=== PATIENT | male | born 1950 | race Caucasian/White ===

== ENCOUNTER 2021-10-14 06:36 | Outpatient (CLI) | payer MEDICARE, SELFPAY ==
[2021-10-14 07:27] LABS: Basophils Absolute Auto 0.1 K/mm3 (0.0-0.1); Basophils Percent Auto 0.6 % (0.2-1.2); Eosinophils Absolute Auto 0.1 K/mm3 (0-0.3); Eosinophils Percent Auto 0.7 % (0-4.4); Hematocrit 42.7 % (42.0-52.0); Hemoglobin 15.1 g/dL (14.0-18.0); Immature Granulocyte Absolute 0.06 K/mm3 (0.00-0.031); Immature Granulocyte Percent A 0.7 % (0-0.5); Lymphocytes Absolute Auto 2.58 K/mm3 (0.9-3.2); Lymphocytes Percent Auto 29.7 % (18.3-44.2); Mean Corpuscular HGB Conc 35.4 g/dl (32-36); Mean Corpuscular Hemoglobin 33.3 pg (26-34); Mean Corpuscular Volume 94.1 fl (80-100); Mean Platelet Volume 8.3 fl (7.4-10.4); Monocytes Percent Auto 11.4 % (2.6-8.5); Neutrophils Percent Auto 56.9 % (45.5-73.1); Platelet Count Result 226 k/mm3 (150-375); Red Blood Count 4.54 M/mm3 (4.6-6.20); Red Cell Distribution Width 12.4 % (11.5-14.5); White Blood Count 8.7 K/mm3 (4.5-10.0)
[2021-10-14 07:34] LABS: Appearance Urine Clear (Clear); Bilirubin Urine Negative (Negative); Blood Urine Negative (Negative); Color Urine Yellow (Yellow); Glucose Urine UA Negative (Negative); Ketones Urine Negative (Negative); Leukocyte Esterase Ur Negative LEU/UL (Negative); Nitrate Urine Negative (Negative); Protein Urine Negative (Negative); Urobilinogen Urine 0.2 mg/dL (<2.0)
[2021-10-14 07:35] LABS: INR 0.9; Prothrombin Time 11.9 Seconds (11.1-14.7)
[2021-10-14 07:36] LABS: Partial Thromboplastin Time 25.7 SECONDS (22.3-36.8)
[2021-10-14 07:43] LABS: Add Urine Microscopic? NO
[2021-10-14 08:04] LABS: Alanine Aminotransferase 26 U/L (6-50); Albumin Level 4.4 g/dL (3.5-5.1); Alkaline Phosphatase 95 U/L (38-126); Anion Gap 8 mmol/L (8-16); Aspartate Amino Transferase 39 U/L (17-59); Bilirubin,Total 0.5 mg/dL (0.2-1.3); Blood Urea Nitrogen 21 mg/dL (9-20); Calcium 9.4 mg/dL (8.4-10.2); Carbon Dioxide 27 mmol/L (22-30); Chloride 94 mmol/L (98-107); Cholesterol 170 mg/dL (0-200); Estimated Glomerular Filt Rate > 60; Glucose 103 mg/dL (65-110); HDL Direct 72 mg/dL; Potassium 4.2 mmol/L (3.4-5.0); Sodium 129 mmol/L (137-145); Triglycerides 76 mg/dL (<150)
[2021-10-14 08:15] LABS: LDL Cholesterol Direct 71 mg/dL
[2021-10-14 08:33] LABS: Prostate Specific Antigen 0.7 ng/mL (< OR = 4.0)
[2021-10-14 09:09] LABS: Folic Acid 10.1 ng/mL (2.76->20)
== END 2021-10-14 06:37 | disposition home or self-care (01) ==
LOC: ANHLAB 06:45
PROVIDERS: PCP Family Medicine Sports Medicine; Visit Provider Family Medicine Sports Medicine
DX: I10 Essential (primary) hypertension (principal); F17.200 Nicotine dependence, unspecified, uncomplicated; J44.9 Chronic obstructive pulmonary disease, unspecified; Z12.5 Encounter for screening for malignant neoplasm of prostate; R51.9 Headache, unspecified; R23.3 Spontaneous ecchymoses
CPT/HCPCS: 36415; 80053; 80061; 81003; 82607; 82746; 84153; 84439; 84443; 85025; 85610; 85730; G0103

== ENCOUNTER 2022-02-26 23:50 | Emergency (ER) | payer MEDICARE, SELFPAY ==
--- NOTE | ~2022-02-26 | CT_ITS ---
CT Abdomen and Pelvis with contrast. History: Abdominal pain. Spiral CT of the abdomen and pelvis was performed after the administration of intravenous contrast. 1 00 cc of Omnipaque 350 was administered intravenously without complication. Dose reduction technique was used on this scan by utilizing automated exposure control and iterative reconstruction technique. The dose-length product (DLP) was 705.36 mGy-cm. COMPARISON: 10/09/2017 Findings: Scans through the lung bases demonstrate mild atelectatic change. The liver, spleen, pancreas, gallbladder, adrenals and kidneys are within normal limits. There is ext ensive atherosclerotic change of the aorta and iliac vessels. There is a probable focal dissection fl ap at the infrarenal abdominal aorta, similar to prior exam. No lymphadenopathy is seen. There is no evidence of bowel obstruction. There is no evidence to suggest acute appendicitis or dive rticulitis. Images through the pelvis were performed. Urinary bladder unremarkable. Prostate gland and seminal ve sicles are unremarkable. No ascites is seen. Impression: Focal dissection of the infrarenal abdominal aorta, probably similar to prior exam. No other significant findings. Reviewed, dictated and finalized at location . PER OPERATOR Impression: Focal dissection of the infrarenal abdominal aorta, probably similar to prior e xam. No other significant findings.
[2022-02-26 23:52] VITALS: BP 187/86; PULSE 69; RESP 15; TEMP 36.2; O2SAT 100
[2022-02-27] VITALS (13 sets, daily range): BP systolic 112–195; BP diastolic 52–89; PULSE 67–82; RESP 14–27; O2SAT 96–100
--- NOTE | 2022-02-27 00:35 | ECG_ITS ---
Measurements Intervals [place] Rate: 69 P: 47 WV: 160 QRS: 68 QRSD: 92 T: 51 QT: 407 QTc: 439 Interpretive Statements SINUS RHYTHM WITH SINUS ARRHYTHMIA BASELINE ARTIFACT- AVR, AVL, AVF NORMAL ECG NO PREVIOUS ECG AVAILABLE FOR COMPARISON Electronically Signed On 02-27-2022 7:45:21 [employer] by Ramesh Bowen D.O.
[2022-02-27] MEDS: ONDANSETRON INJ 4 MG/2 ML VIAL IV PUSH (00:43)
[2022-02-27] MEDS: SODIUM CHLORIDE 0.9% IV 1,000 ML 999 ML IV CONT (00:43)
[2022-02-27 01:08] LABS: Basophils Percent Auto 0.3 % (0.2-1.2); Eosinophils Percent Auto 0.2 % (0-4.4); Hematocrit 45.1 % (42.0-52.0); Hemoglobin 16.1 g/dL (14.0-18.0); Immature Granulocyte Absolute 0.03 K/mm3 (0.00-0.031); Immature Granulocyte Percent A 0.5 % (0-0.5); Lymphocytes Absolute Auto 1.58 K/mm3 (0.9-3.2); Lymphocytes Percent Auto 23.8 % (18.3-44.2); Mean Corpuscular HGB Conc 35.7 g/dl (32-36); Mean Corpuscular Hemoglobin 32.3 pg (26-34); Mean Corpuscular Volume 90.6 fl (80-100); Mean Platelet Volume 9.3 fl (7.4-10.4); Monocytes Absolute Auto 0.8 K/mm3 (0.1-0.6); Monocytes Percent Auto 12.5 % (2.6-8.5); Neutrophils Absolute Auto 4.2 K/mm3 (1.3-6.7); Neutrophils Percent Auto 62.7 % (45.5-73.1); Platelet Count Result 215 k/mm3 (150-375); Red Blood Count 4.98 M/mm3 (4.6-6.20); Red Cell Distribution Width 12.7 % (11.5-14.5); White Blood Count 6.6 K/mm3 (4.5-10.0)
[2022-02-27 01:31] LABS: Lactic Acid Reflex 1.3 mmol/L (0.7-2.0)
[2022-02-27] MEDS: PROCHLORPERAZINE EDISYLATE 10 MG/2 ML VIAL IV PUSH ×2 (01:45→06:37)
--- NOTE | 2022-02-27 01:46 | ED.GENADULT ---
HPI - General Adult General Chief complaint: Nausea/Vomiting/Diarrhea Stated complaint: vomiting Time Seen by Provider: 02/27/22 00:23 History of Present Illness HPI narrative: Patient is 72-year-old gentleman who presents the emergency department with chief complaint of abdominal pain and nausea. The patient reports that he seen his primary care provider earlier this week and was having nausea and abdominal discomfort. The patient reports he was started on antiemetics and reports that he has been still having discomfort and nausea. Patient reports symptoms or not improved by anything and reports there not worsened by anything. Related Data Home Medications Medication Instructions Recorded Confirmed aspirin 81 mg tablet,delayed 81 mg PO DAILY 01/23/19 release (Mikal Low Dose Aspirin) metoprolol succinate 100 mg mg PO 01/23/19 tablet,extended release 24 hr Allergies Allergy/AdvReac Type Severity Reaction Status Date / Time No Known Allergies Allergy Mild Verified 01/30/19 11:45 Review of Systems Review of Systems: A 10 system review of systems was completed on the patient and is negative except for what is stated in the HPI. Nursing and ancillary documentation was reviewed. PMFSH Social History Social History Smoking status: Smoker, status unknown Alcohol intake: current Exam Narrative: GENERAL: Well-appearing, well-nourished, and in no acute distress. HEAD: Normocephalic, atraumatic. EYES: PERRLA and EOMI. ENT: Nares clear, no rhinorrhea or epistaxis. Mucous membranes moist. NECK: Supple. CHEST: Clear to auscultation. No respiratory distress. HEART: Regular rate and rhythm. No murmur heard. Normal peripheral pulses. ABDOMEN: Soft, tenderness to palpation throughout the abdomen, nondistended, normal active bowel sounds. EXTREMITIES: Normal range of motion. No edema. SKIN: Warm, dry, no rash. NEURO: No focal deficits. Alert and oriented x3. PSYCH: Normal mood and affect. Course Vital Signs Vital signs: Vital Signs Temperature 36.2 C L 02/26/22 23:52 Pulse Rate 69 02/26/22 23:52 Respiratory Rate 15 02/26/22 23:52 Blood Pressure 187/86 H 02/26/22 23:52 Pulse Oximetry 100 02/26/22 23:52 Oxygen Delivery Room Air 02/26/22 23:52 Temperature 36.2 C L 02/26/22 23:52 Pulse Rate 73 02/27/22 05:16 Respiratory Rate 17 02/27/22 05:16 Blood Pressure 123/62 02/27/22 05:16 Pulse Oximetry 99 02/27/22 05:16 Oxygen Delivery Room Air 02/26/22 23:52 Medical Decision Making MDM Narrative Medical decision making narrative: Laboratory studies were obtained patient has a normal white blood cell count and normal hemoglobin urinalysis showed no evidence of UTI. EKG interpreted by pa sinus rhythm rate of [address] elevation or ST depression there was artifact from patient movement Patient received IV fluids and into the biotics in the ER. 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 Radiology recommends follow-up as an outpatient with a ultrasound The patient is able to tolerate p.o. Vital Signs Vital Signs: Vital Signs Temperature 36.2 C L 02/26/22 23:52 Pulse Rate 69 02/26/22 23:52 Respiratory Rate 15 02/26/22 23:52 Blood Pressure 187/86 H 02/26/22 23:52 Pulse Oximetry 100 02/26/22 23:52 Oxygen Delivery Room Air 02/26/22 23:52 Temperature 36.2 C L 02/26/22 23:52 Pulse Rate 73 02/27/22 05:16 Respiratory Rate 17 02/27/22 05:16 Blood Pressure 123/62 02/27/22 05:16 Pulse Oximetry 99 02/27/22 05:16 Oxygen Delivery Room Air 02/26/22 23:52 Lab Data 02/27/22 00:49 02/27/22 00:49 Labs: Lab Results 02/27/2202/09
[2022-02-27 02:14] LABS: Appearance Urine Clear (Clear); Bilirubin Urine Negative (Negative); Blood Urine Negative (Negative); Color Urine Yellow (Yellow); Glucose Urine UA Negative (Negative); Ketones Urine 1+ mg/dL (Negative); Leukocyte Esterase Ur Negative LEU/UL (Negative); Nitrate Urine Negative (Negative); Protein Urine Trace mg/dL (Negative); Urobilinogen Urine 0.2 mg/dL (<2.0)
[2022-02-27 02:30] LABS: Mucus Urine Rare /lpf; RBC Urine 0-2 /hpf (0-2); WBC Urine 0-3 /hpf
[2022-02-27 03:07] LABS: Add Urine Microscopic? YES
[2022-02-27 03:21] LABS: Alanine Aminotransferase 34 U/L (6-50); Alkaline Phosphatase 93 U/L (38-126); Anion Gap 11 mmol/L (8-16); Aspartate Amino Transferase 38 U/L (17-59); Bilirubin,Total 0.6 mg/dL (0.2-1.3); Blood Urea Nitrogen 29 mg/dL (9-20); Calcium 8.7 mg/dL (8.4-10.2); Carbon Dioxide 22 mmol/L (22-30); Chloride 97 mmol/L (98-107); Estimated CRCL calculation 61 ml/min; Estimated Glomerular Filt Rate > 60; Glucose 103 mg/dL (65-110); Lipase 218 U/L (23-300); Potassium 4.3 mmol/L (3.4-5.0); Sodium 130 mmol/L (137-145)
[2022-02-27 03:25] LABS: Troponin I < 0.012 ng/mL (0.000-0.034)
== END 2022-02-27 07:32 | disposition home or self-care (01) ==
PROVIDERS: Emergency Provider Emergency Medicine; PCP Family Medicine Sports Medicine
DX: I71.02 Dissection of abdominal aorta (principal); I71.43 Infrarenal abdominal aortic aneurysm, without rupture; R11.2 Nausea with vomiting, unspecified; Z79.82 Long term (current) use of aspirin
CPT/HCPCS: 36415; 74177; 80053; 81001; 83605; 83690; 84484; 85025; 93005; 96361; 96374; 96375; 99284; J0780; J2405; J7030; Q9967

== ENCOUNTER 2024-10-25 12:43 | Emergency (ER) | payer MEDICARE, SELFPAY ==
--- NOTE | 2024-10-25 12:45 | ED.GENADULT ---
HPI - General Adult General Chief complaint: Wound/Laceration Stated complaint: R HAND INJURY Time Seen by Provider: 10/25/24 12:45 Source: patient Mode of arrival: ambulatory Limitations: no limitations History of Present Illness HPI narrative: Pt is a R hand dominant 74 y/o male presenting with c/o R. hand injury. Pt reports he went to stand up from the couch however, his leg was asleep so he fell forward, grazing his arm along the couch (fabric surface). He reports skin tear to the R. hand. He denies striking his head. He denies any bony injury/pain. He denies LOC. He denies feeling dizzy or lightheaded prior to fall. 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 Last tetanus vaccination received < 5 yrs ago. No additional complaints. Related Data Home Medications ?Medication ?Instructions ?Recorded ?Confirmed ?Last Taken ?Type aspirin 81 mg tablet,delayed 81 mg PO DAILY 01/23/19 10/25/24 Unknown History release (Mikal Low Dose Aspirin) metoprolol succinate 100 mg 100 mg PO DAILY 01/23/19 10/25/24 Unknown History tablet,extended release 24 hr Allergies Allergy/AdvReac Type Severity Reaction Status Date / Time No Known Allergies Allergy Mild Verified 10/25/24 12:50 Review of Systems Review of Systems: CONSTITUTIONAL: Denies body aches, fever, chills, or sweats. EYES: Denies visual changes, redness, or discharge. ENT: Denies rhinorrhea, congestion, sore throat, or otalgia. CARDIOVASCULAR: Denies chest pain, palpitations, or edema. RESPIRATORY: Denies cough or dyspnea. GASTROINTESTINAL: Denies abdominal pain, nausea, vomiting, or diarrhea. GENITOURINARY: Denies dysuria or hematuria. SKIN: Reports skin tear to R. hand Denies rash, itching MUSCULOSKELETAL: Denies back pain, joint pain, or myalgia. NEUROLOGIC: Denies headache, numbness, tingling, or weakness. PSYCH: Denies depression or anxiety. All systems reviewed & are unremarkable except as noted in HPI and below (HPI) PMFSH Social History Social History Smoking status: Smoker, status unknown Alcohol intake: current Exam Narrative: GENERAL: Well-appearing, well-nourished, and in no acute distress. HEAD: Normocephalic, atraumatic. EYES: EOMI. No redness or drainage. Conjunctivae normal. NECK: Normal AROM. Supple. CHEST: No respiratory distress. HEART: Regular rate Normal peripheral pulses. ABDOMEN: Soft, nontender, nondistended, normal active bowel sounds. MUSCULOSKELETAL: No bony tenderness. EXTREMITIES: Normal range of motion. No edema. +DNVI +FROM to the RUE SKIN: Warm, dry, no rash. Capillary refill normal. Normal skin turgor. Skin tear to the dorsal aspect of the R. hand, overlying the 1st and 2nd metacarpals. NEURO: No focal deficits. Alert and oriented x3. Gait steady. PSYCH: Normal affect. No signs of depression or anxiety. Course Course Emergency Course: Unable to reapproximate skin as much of the skin has been completely torn away. Reapproximated what I could--nurse then dressed wound Level of Care: Express Care Visit Vital Signs Vital signs: Vital Signs Temperature 96.8 F L 10/25/24 12:53 Pulse Rate 10/25/24 12:53 Respiratory Rate 10/25/24 12:53 Blood Pressure 120/55 L 10/25/24 12:53 Pulse Oximetry 10/25/24 12:53 Temperature 96.8 F L 10/25/24 12:53 Pulse Rate 10/25/24 12:53 Respiratory Rate 10/25/24 12:53 Blood Pressure 120/55 L 10/25/24 12:53 Pulse Oximetry 10/25/24 12:53 Medical Decision Making Vital Signs Vital Signs: Vital Signs Temperature 96.8 F L 10/25/24 12:53 Pulse Rate 10/25/24 12:53 Respiratory Rate 10/25/24 12:53 Blood Pressure 120/55 L 10/25/24 12:53 Pulse Oximetry 10/25/24 12:53 Temperature 96.8 F L 10/25/24 12:53 Pulse Rate 10/25/24 12:53 Respiratory Rate 10/25/24 12:53 Blood Pressure 120/55 L 10/25/24 12:53 Pulse Oximetry 10/25/24 12:53 Discharge Plan Discharge Clinical Impression: Skin tear of right hand without complication Patient Disposition: Home Condition: Stable Instructions: Skin Tear (ED) Patient Language: Nigerien Prescriptions: No Action metoprolol succinate 100 mg tablet extended release 24 hr 100 mg PO DAILY aspirin [Mikal Low Dose Aspirin] 81 mg tablet,delayed release (DR/EC) 81 mg PO DAILY Follow-up/Referrals: Jayde,Malachi Lewis MD [Primary Care Provider, Unknown] - 10/26/24 Time of Disposition: 12:51
[2024-10-25 12:53] VITALS: BP 120/55; PULSE 83; RESP 16; TEMP 36; O2SAT 100
== END 2024-10-25 13:14 | disposition home or self-care (01) ==
PROVIDERS: Emergency Provider Registered Nurse; PCP Family Medicine
DX: S61.411A Laceration without foreign body of right hand, initial encounter (principal); W18.39XA Other fall on same level, initial encounter; Z79.82 Long term (current) use of aspirin
CPT/HCPCS: 99212; G0463

== ENCOUNTER 2024-10-27 10:39 | Emergency (ER) | payer MEDICARE, SELFPAY ==
[2024-10-27 10:49] VITALS: BP 173/100; PULSE 77; RESP 16; TEMP 36.2; O2SAT 99
[2024-10-27] MEDS: LIDO 1%/EPINEPHRINE 1:100,000 20 ML VIAL 5 ML INFILTRATE (11:07)
--- NOTE | 2024-10-27 11:26 | ED_ITS ---
HPI - Skin/Abscess/Foreign Bdy General Chief complaint: Skin/Abscess/Foreign Body Stated complaint: bump on rear end Time Seen by Provider: 10/27/24 10:52 Source: patient and RN notes reviewed Mode of arrival: ambulatory Limitations: no limitations History of Present Illness HPI narrative: Patient presents today complaining painful bump to the lower left buttock that was noted last night. Reports history of abscess many years ago, but none since then. No history of MRSA. No OTC treatment prior to arrival. Patient states he has to fly in an airplane in a few days and to get it taking care of. Related Data Home Medications ?Medication ?Instructions ?Recorded ?Confirmed ?Last Taken ?Type aspirin 81 mg tablet,delayed 81 mg PO DAILY 01/23/19 0 10/25/24 Unknown History release (Mikal Low Dose Aspirin) metoprolol succinate 100 mg 100 mg PO DAILY 01/23/19 0 10/25/24 Unknown History tablet,extended release 24 hr Allergies Allergy/AdvReac Type Severity Reaction Status Date / Time No Known Allergies Allergy Mild Verified 10/27/24 10:52 [facility] Social History Social History Smoking status: Smoker, status unknown Alcohol intake: current Comments At time of signature, I have reviewed and agree with nursing past medical, surgical, social and family history unless otherwise noted. Please see nursing chart for further information. There is no relevant family history pertinent to the presenting complaint Exam Narrative: GENERAL: Well-appearing, well-nourished, and in no acute distress. HEAD: Normocephalic, atraumatic. EYES: EOMI. No redness or drainage. Conjunctivae normal. ENT: Mucous membranes pink and moist. NECK: Normal AROM. CHEST: No respiratory distress. EXTREMITIES: Normal range of motion. No edema. SKIN: Warm, dry, no rash. Capillary refill normal. Normal skin turgor. 2 x 3 cm erythematous fluctuant lesion to the left lower buttock at the skin fold that is mildly tender to palpation. NEURO: No focal deficits. Alert and oriented x3. Gait steady. PSYCH: Normal affect. No signs of depression or anxiety. Course Course Level of Care: Express Care Visit Vital Signs Vital signs: Vital Signs Temperature 97.1 F L 10/27/24 10:49 Pulse Rate 77 10/27/24 10:49 Respiratory Rate 16 10/27/24 10:49 Blood Pressure 173/100 H 10/27/24 10:49 Pulse Oximetry 99 10/27/24 10:49 Temperature 97.1 F L 10/27/24 10:49 Pulse Rate 77 10/27/24 10:49 Respiratory Rate 16 10/27/24 10:49 Blood Pressure 173/100 H 10/27/24 10:49 Pulse Oximetry 99 10/27/24 10:49 Reviewed Procedures Abscess I/D Right buttock: Date of Incision: 10/27/24 Time of Incision: 11:00 Side (if applicable): right Local Anesthetic: lidocaine 1% and with epi Amount of anesthesia used (mL): 3 Technique: incised with #11 blade Amount of fluid expressed (mL): 4 Irrigation: Yes Packing used?: iodoform I&D Results: Pus and Blood Abcess I&D Additional Comments: Dressed with large Band-Aid MDM - Skin/Abscess/Foreign Bdy MDM Narrative Medical decision making narrative: 74-year-old male patient with painful red bump to the left lower buttock that was noted last night. Denies history of staph or MRSA. Reports history of 1 abscess many many years ago. Upon exam, patient has a 3 x 2 cm erythematous fluctuant painful lesion to the left lower buttock. Area was lanced and drained resulting in the copious purulent discharge. The area was packed with iodoform and dressed with large Band-Aid. Prescription for Keflex sent to pharmacy. Anticipatory guidance given. Elevated blood pressure noted. Patient on metoprolol. Differential Diagnosis Differential diagnosis: Likely abscess of skin or subcutaneous tissue and cellulitis Critical Care Time Critical Care Time Critical Care Time: No Discharge Plan Discharge Clinical Impression: Abscess of buttock, left Patient Disposition: Home Condition: Stable Instructions: Antibiotic Form, Abscess (ED), Abscess Incision and Drainage (DC) Additional Instructions: Your abscess has been lanced and drained. Please remove the packing in 48 hours times. Keep covered until scabbed over. Take the antibiotics as prescribed. Take Tylenol for pain if needed. Follow-up with your PCP next week if symptoms are not improving. Your blood pressure was elevated above 120/80 today at Urgent Care. This puts you above the threshold for follow up. Please schedule a followup visit with your personal physician as soon as possible, for further evaluation and treatment. Even blood pressure exceeding 120/80 may indicate pre-hypertension. Patient Language: Hebrew Prescriptions: New cephalexin 500 mg capsule 500 mg PO Q6H 7 Days Qty: 28 0RF No Action metoprolol succinate 100 mg tablet extended release 24 hr 100 mg PO DAILY aspirin [Mikal Low Dose Aspirin] 81 mg tablet,delayed release (DR/EC) 81 mg PO DAILY Follow-up/Referrals: Jayde,Malachi Lewis MD [Primary Care Provider, Unknown] Time of Disposition: 11:26
== END 2024-10-27 11:27 | disposition home or self-care (01) ==
PROVIDERS: Emergency Provider Nurse Practitioner; PCP Family Medicine
DX: L02.31 Cutaneous abscess of buttock (principal); I10 Essential (primary) hypertension; Z79.82 Long term (current) use of aspirin
CPT/HCPCS: 10061; 99213; A9270; G0463; J2004

== ENCOUNTER 2025-01-23 06:46 | Outpatient (CLI) | payer MEDICARE, SELFPAY ==
--- OUTSIDE RECORDS SUMMARY | 2025-01-23 06:51 | XMS_ITS | Clinical Summary ---
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
--- OUTSIDE RECORDS SUMMARY | 2025-01-23 06:51 | XMS_ITS | Patient Health Record ---
Author Organization [facility] Address 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 Name Role Phone Wero Donovan MD Primary Care Provider Unavailab le Reason For Referral No Information Problems Problem Type SNOMED Code ICD Code Onset Dates Problem Status W/U Status Risk Notes Problem History of malignant neoplasm of colon (055452982) History of colon cancer (Z85.038) Active confirmed Plan Of Treatment No Information Insurance Providers Payer Name Payer Address Payer Phone Subscriber Number Group Number Insured Name Patient Relationship to Insured Coverage Start Date Coverage End Date Medicare E2 [address] [address] [place] [address] [id number] Wero Castillo Self - patient is the insured [employer] [address] [place] [address] [id number] Plan F Wero Castillo Self - patient is the insured
--- OUTSIDE RECORDS SUMMARY | 2025-01-23 06:51 | XMS_ITS | Encounter Summary ---
Author Organization [facility] Address 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 Gender Identity Not on file Sexual Orientation Not on file documented as of this encounter Plan of Treatment Not on file documented as of this encounter Procedures Procedure Name Priority Date/Time Associated Diagnosis Comments CT ABDOMEN PELVIS W CONTRAST Routine 06/13/2008 1:07 PM CDT POC CREATININE Routine 06/13/2008 12:48 PM CDT documented in this encounter Results * CT ABDOMEN PELVIS W CONTRAST (06/13/2008 1:07 PM CDT) Anatomical Region Laterality Modality Abdomen Other 06/13/2008 1:07 PM CDT Narrative 06/13/2008 3:47 PM CDT [facility] [address] [place], [place] [address] Admit Date: 06/13/2008 BONG CASTILLO Sex: M Admit Prov: KALIN JONES Date: 1950 Primary Care Prov: CMRN: [id number] [facility] SSN: [id number] IMAGING SERVICES Ordering Prov: N/A Accession Number: [id number] Interpretation CT SCAN OF THE ABDOMEN AND PELVIS WITH IV CONTRAST 06/13/2008 Clinical History: Rectal cancer. Technique: 5 mm contiguous axial images were obtained from the lung bases to the symphysis pubis following oral and IV contrast administration. Findings: The lung bases are clear. The liver, spleen, pancreas, adrenal glands and right kidney are normal. There is a 2 cm cyst projecting from the upper pole of the left kidney. The aorta is atherosclerotic but not aneurysmal. The bowel loops are unremarkable. There is no lymphadenopathy or free fluid. In the pelvis, there is mild sigmoid diverticulosis but no evidence of diverticulitis. The bladder and appendix are within normal limits. There is no lymphadenopathy or free fluid. There are degenerative changes in the spine. IMPRESSION: 1. Sigmoid diverticulosis. 2. Simple left renal cyst. 3. No evidence of metastatic disease. . Dictated by: TALITA FRANKEL 06/13/2008 13:38 Electronically signed by: TALITA FRANKEL 06/13/2008 15:45 Transcribed: 06/13/2008 13:47 AMK Procedure Note Talita Frankel MD - 06/13/2008 [facility] [address] [place], [place] [address] Admit Date: 06/13/2008 BONG CASTILLO Sex: M Admit Prov: KALIN JONES Date:1950 Primary Care Prov: CMRN: [id number] Room: [facility] SSN: [id number] IMAGING SERVICES Ordering Prov: N/A Interpretation CT SCAN OF THE ABDOMEN AND PELVIS WITH IV CONTRAST 06/13/2008 Clinical History: Rectal cancer. Technique: 5 mm contiguous axial images were obtained from the lungbases to the symphysis pubis following oral and IV contrastadministration. Findings: The lung bases are clear. The liver, spleen, pancreas,adrenal glands and right kidney are normal. There is a 2 cm cyst projectingfrom the upper pole of the left kidney. The aorta is atherosclerotic butnot aneurysmal. The bowel loops are unremarkable. There is nolymphadenopathy or free fluid. In the pelvis, there is mild sigmoid diverticulosis but no evidenceof diverticulitis. The bladder and appendix are within normal limits.There is no lymphadenopathy or free fluid. There are degenerative changes inthe spine. IMPRESSION: 1. Sigmoid diverticulosis. 2. Simple left renal cyst. 3. No evidence of metastatic disease. . Dictated by: TALITA FRANKEL 06/13/2008 13:38 Electronically signed by: TALITA FRANKEL 06/13/2008 15:45 Transcribed: 06/13/2008 13:47 AMK [address] MD [address] ORDERABLES Final Resul t * (ABNORMAL) POC CREATININE (06/13/2008 12:48 PM CDT) CREATININE POC 1.3 0.6 - 1.3 mg/dL [facility] Comment: The calculation for the estimated GFR on the i-STAT POC instrument has been changed to correspond to the IDMS-traceable MDRD Study, upon the recommendation of the refrigerated company driver of the i-STAT instrument. The change was effective in our laboratory 01/16/2008. The impact of this change to the estimated GFR is minimal. This calculation is used by the main laboratory methodology also. GFR, >60 >=60 mL/min/1.7 sq meter [facility] GFR 56(L) >=60 mL/min/1.7 sq meter [facility] Capillary blood specimen (specimen) 06/13/2008 12:48 PM CDT 06/13/2008 12:48 PM CDT Kalin Jones MD POINT OF CARE TESTING Edite d INTERFACE SYSTEM Refer to clinic/hospital department [facility] CLIA# [id number] [address] [place], [place] [address] documented in this encounter Visit Diagnoses Diagnosis Carcinoma in situ of rectum documented in this encounter
--- OUTSIDE RECORDS SUMMARY | 2025-01-23 06:51 | XMS_ITS | Clinical Summary ---
Author Organization [facility] Address [address] [place] [address] Care Team Providers Care Monorail Helper Name Role Phone Malachi Donohue MD Primary Care Provider [phone] Allergies No known active allergies Medications metoprolol (LOPRESSOR) 100 mg tablet Take 1 tablet (100 mg total) by mouth 2 (two) times a day Active aspirin 81 mg enteric coated tablet Take 1 tablet (81 mg total) by mouth daily Active acetaminophen (TylenoL) 325 mg tablet 3 tablets (975 mg total) 3 Active celecoxib (CeleBREX) 100 mg capsule 1 capsule (100 mg total) 3 Active cyclobenzaprine (FLEXERIL) 10 mg tablet Take 1 tablet (10 mg total) by mouth every 8 (eight) hours 4 Active methylPREDNISol one (MEDROL DOSEPACK) 4 mg Dosepack FOLLOW PACKAGE DIRECTIONS 4 Active metoprolol XL (TOPROL-XL) 100 mg 24 hr tablet Take 1 tablet (100 mg total) by mouth daily 4 Active naproxen (NAPROSYN) 500 mg tablet 2 Active oxyCODONE (ROXICODONE) 5 mg immediate release tablet Take 1 tablet (5 mg total) by mouth every 6 (six) hours as needed 4 Active senna-docusate (Senokot-S) 8.6-50 mg 1 tablet(s), Oral, bid, 60 tablet(s), Tablet(s), 0, 0, Route to Pharmacy Electronically, [facility], [id number], 182.9, cm, 02/05/23 5:33:00 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 DIRECTOR, Height, 90.6, kg, 02/05/23 5:33:00 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 DIRECTOR, Weight 3 Active traMADoL (Ultram) 50 mg tablet 1 tablet (50 mg total) 3 Active Active Problems Problem Noted Date Diagnosed Date Leukocytosis 05/19/2023 Infrarenal abdominal aortic aneurysm (AAA) witho ut rupture 03/30/2022 Encounters Date Type Department Care Team Description 11/29/2024 8:00 AM CDT Office Visit [facility] at [address] [id number] Isabel Gomez NP Bilateral impacted cerumen (Primary Dx) from Last 3 Months Immunizations Immunization Administration Dates Next Due Tdap 06/14/2022 ZOSTER Recombinant 09/19/2020,07/18/2020 Surgical History Surgery Date Site/Laterality Comments COLECTOMY N/A Medical History Medical History Date Comments Hypertension High blood monocyte count Colon cancer (HCC) Social History Tobacco Use Types Packs/Day Years Used Date Smoking Tobacco: Every Day Cigarettes 1.5 66 Started: 1961 Passive Smoke Exposure: Current Smokeless Tobacco: Never Tobacco Cessation:Ready to Q uit: Not Asked; Counseling Given: Not Answered AUDIT-C Answer Date Recorded Q1: How often do you have a drink containing alcohol? 4 or more times a week 05/10/2024 Q2: How many drinks containi ng alcohol do you have on a typical day when you are drinking? 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 Gender Identity Not on file Sexual Orientation Not on file Last Filed Vital Signs Vital Sign Reading Time Taken Comments Blood Pressure 131/70 11/29/2024 8:00 AM CDT Pulse 71 11/29/2024 8:00 AM CDT Temperature 36.2 C (97.2 F) 11/29/2024 8:00 AM CDT Respiratory Rate 16 11/29/2024 8:00 AM CDT Oxygen Saturation 99% 11/29/2024 8:00 AM CDT Inhaled Oxygen Concentration - - Weight 92.1 kg (203 lb) 11/29/2024 8:00 AM CDT Height 180.3 cm (5' 11) 07/14/2024 8:13 AM CDT Body Mass Index 28.31 07/14/2024 8:13 AM CDT Plan of Treatment Health Maintenance Due Date Last Done Comments Depression Screening 1950 Fall Risk Assessment 1950 Hepatitis C Screening 1950 Hepatitis B Screening 02/04/1966 Pneumococcal vaccine 65+ (1 of 2 - PCV) 02/04/1967 Lung Cancer Screening 02/04/1998 Well Visit 65+ 02/04/2013 Covid-19 Vaccine (2024-2 6 season) 2024 03/11/2021, 04/27/2020, 04/06/2020 Influenza Vaccine (#1) 2024 DTaP/Tdap/Td Vaccine (2 - Td or Tdap) 06/14/2032 06/14/2022 Zoster Vaccine Completed 09/19/2020, 07/18/2020 Abdominal Aortic Aneurysm (A AA) Screen Completed 05/10/2024, 05/10/2024, 05/10/2024, Additional history exists Procedures Procedure Name Priority Date/Time Associated Diagnosis Comments PA REMOVAL IMPACTED CERUMEN INSTRUMENTATION UNILAT Routine 11/29/2024 8:00 AM CDT Bilateral impacted cerumen US ABDOMINAL AORTA Schedule Routine, Read Routine (OP Routine) 04/10/2022 8:52 AM 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 DIRECTOR Infrarenal abdominal aortic aneurysm (AAA) without rupture from Last 3 Months or Most Recently Relevant to Health Maintenance Results * PA REMOVAL IMPACTED CERUMEN INSTRUMENTATION UNILAT (11/29/2024 8:00 AM CDT) Narrative Isabel Gomez NP - 11/29/2024 8:00 AM CDT Isabel Gomez NP 11/29/2024 8:17 AM Ear Cerumen Removal Performed by: Isabel Gomez NP Authorized by: Isabel Gomez NP Consent Given by: Patient Timeout: prior to procedure the correct patient, procedure, and site was verified Verbal consent obtained: Yes Risks, alternatives, and patient questions discussed: Yes Preparation: Patient was prepped using a clean technique Location: Bilateral L ear cerumen impacted?: Yes L ear method of removal: Instrumentation and irrigation L ear instrumentation: Curette L ear magnification: Otoscope R ear cerumen impacted?: Yes R ear method of removal: Instrumentation and irrigation R ear instrumentation: Curette R ear magnification: Otoscope Inspection: TM intact Hearing quality: Improved Patient tolerance: Patient tolerated the procedure well with no immediate complications TM and canal normal bilaterally after cerumen removed. us Isabel Gomez DESIGN INTERN IN CLINIC/BEDSIDE ORDERABLES Fi nal Result * US Abdominal Aorta (04/10/2022 8:52 AM 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 DIRECTOR) Anatomical Region Laterality Modality Abdomen N/A Ultrasound 04/10/2022 9:03 AM 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 DIRECTOR Impressions 04/10/2022 9:03 AM 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 DIRECTOR There is a 3.2 cm distal abdominal aortic aneurysm. Electronically signed by: Meet Prescott M.D. Narrative 04/10/2022 9:03 AM 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 DIRECTOR EXAM: US ABDOMINAL AORTA CLINICAL HISTORY: Follow-up reported distal abdominal aortic aneurysm. COMPARISON: None available. FINDINGS: There is abdominal aortic atherosclerosis. The proximal abdominal aorta measures 2.4 x 2.5 cm. The mid abdominal aorta measures 2.6 x 2.7 cm. The distal abdominal aorta measures 3.2 x 3.2 cm. Both common iliac arteries are of normal caliber. No periaortic mass or fluid collection is identified. Procedure Note Meet Prescott MD - 04/10/2022 EXAM: US ABDOMINAL AORTA CLINICAL HISTORY: Follow-up reported distal abdominal aortic aneurysm. COMPARISON: None available. FINDINGS: There is abdominal aortic atherosclerosis. The proximal abdominal aorta measures 2.4 x 2.5 cm. The mid abdominal aorta measures 2.6 x 2.7 cm. The distal abdominal aorta measures 3.2 x 3.2 cm. Both common iliac arteries are of normal caliber. No periaortic mass or fluid collection is identified. IMPRESSION: There is a 3.2 cm distal abdominal aortic aneurysm. Electronically signed by: Meet Prescott M.D. Phoenix Mejia MD [facility] PROCEDURES Final Result from Last 3 Months or Most Recently Relevant to Health Maintenance Insurance MEDICARE [facility] MEDICARE [facility] MEDICARE [employer] Care Teams Monorail Helper Relationship Specialty Start Date End Date Malachi Donohue MD [address] [place] [id number] PCP - General Family Medicine 04/27/23
--- OUTSIDE RECORDS SUMMARY | 2025-01-23 06:51 | XMS_ITS | Encounter Summary ---
Author Organization [email or web address] Address [address] [place] [address] Care Team Providers Care Millwright Supervisor Name Role Phone Unavailable Primary Care Provider Unavailabl e Encounter Details Date Type Department Care Team (Late st Contact Info) Description 06/13/2008 Outpatient Historical [facility] Kalin Jones MD NO ADDRESS ON FILE Social History Tobacco Use Types Packs/Day Years Used Date Smoking Tobacco: Never Assessed Sex and Gender Information Value Date Recorded Sex Assigned at Not on file Legal Sex Male 5:44 AM [employer] Gender Identity Not on file Sexual Orientation Not on file documented as of this encounter Plan of Treatment Not on file documented as of this encounter Procedures Procedure Name Priority Date/Time Associated Diagnosis Comments CBC WITH DIFFERENTIAL Routine 06/24/2008 5:38 AM CDT CBC WITH DIFFERENTIAL Routine 06/22/2008 5:22 AM CDT BASIC METABOLIC PANEL Timed Study 06/22/2008 5:22 AM CDT PATHOLOGY Routine 06/21/2008 5:00 PM CDT CBC WITH DIFFERENTIAL Routine 06/13/2008 2:25 PM CDT CEA Routine 06/13/2008 2:25 PM CDT COMPREHENSIVE METABOLIC PANEL Routine 06/13/2008 2:25 PM CDT TYPE AND CROSSMATCH Routine 06/13/2008 2 :19 PM CDT documented in this encounter Results * (ABNORMAL) CBC WITH DIFFERENTIAL (06/24/2008 5:38 AM CDT) HEMOGLOBIN 12.8(L) 13.6 - 16.5 g/dL [facility] RDW 12.9 11.5 - 14.5 % [facility] WBC 8.4 4.0 - 9.8 K/uL [facility] MCH 31.4 27.2 - 32.6 pg [facility] MPV 9.7 9.3 - 12.4 fL [facility] HEMATOCRIT 38.7(L) 40.0 - 48.0 % [facility] RDW-STDEV 44.9 37.1 - 48.7 fL [facility] RBC 4.07(L) 4.50 - 5.40 M/uL [facility] MCHC 33.1 31.5 - 35.5 % [facility] MCV 95.1 82.0 - 99.0 fL [facility] PLATELETS 197 140 - 350 K/uL [facility] EOSINOPHILS 1 0 - 7 % [facility] EOSINOPHIL ABSOLUTE 0.12 0.00 - 0.70 K/uL [facility] LYMPHOCYTES 17 16 - 45 % [facility] LYMPHOCYTE ABSOLUTE 1.47 0.70 - 4.50 K/uL [facility] BASOPHILS 1 0 - 2 % [facility] BASOPHILS ABSOLUTE 0.04 0.00 - 0.20 K/uL [facility] MONOCYTE ABSOLUTE 0.86 0.10 - 1.30 K/uL [facility] NEUTROPHILS 71(H) 45 - 70 % [facility] NEUTROPHIL ABSOLUTE 5.95 1.90 - 7.00 K/uL [facility] MONOCYTES 10 3 - 13 % [facility] Blood specimen (specimen) 06/24/2008 5:38 AM CDT 06/24/2008 5:50 AM CDT us Kalin Jones MD HEMATOLOGY ORDERABLES Edite d INTERFACE SYSTEM Refer to clinic/hospital department [facility] CLIA# [id number] [address] [place] [address] * (ABNORMAL) CBC WITH DIFFERENTIAL (06/22/2008 5:22 AM CDT) PLATELETS 213 140 - 350 K/uL [facility] HEMOGLOBIN 12.7(L) 13.6 - 16.5 g/dL [facility] RDW 13.0 11.5 - 14.5 % [facility] WBC 10.6(H) 4.0 - 9.8 K/uL [facility] MCH 31.4 27.2 - 32.6 pg [facility] MPV 9.8 9.3 - 12.4 fL [facility] HEMATOCRIT 37.6(L) 40.0 - 48.0 % [facility] RDW-STDEV 43.8 37.1 - 48.7 fL [facility] RBC 4.04(L) 4.50 - 5.40 M/uL [facility] MCHC 33.8 31.5 - 35.5 % [facility] MCV 93.1 82.0 - 99.0 fL [facility] EOSINOPHILS 0 0 - 7 % [facility] EOSINOPHIL ABSOLUTE 0.00 0.00 - 0.70 K/uL [facility] LYMPHOCYTES 10(L) 16 - 45 % [facility] LYMPHOCYTE ABSOLUTE 1.01 0.70 - 4.50 K/uL [facility] BASOPHILS 0 0 - 2 % [facility] BASOPHILS ABSOLUTE 0.00 0.00 - 0.20 K/uL [facility] MONOCYTES 8 3 - 13 % [facility] MONOCYTE ABSOLUTE 0.83 0.10 - 1.30 K/uL [facility] NEUTROPHILS 83(H) 45 - 70 % [facility] NEUTROPHIL ABSOLUTE 8.71(H) 1.90 - 7.00 K/uL [facility] Blood specimen (specimen) 06/22/2008 5:22 AM CDT 06/22/2008 6:20 AM CDT us Kalin Jones MD HEMATOLOGY ORDERABLES Edite d INTERFACE SYSTEM Refer to clinic/hospital department [facility] CLIA# [id number] [address] [place], [place] [address] * (ABNORMAL) BASIC METABOLIC PANEL (06/22/2008 5:22 AM CDT) CHLORIDE 101 96 - 108 mmol/L [facility] SODIUM 132(L) 135 - 145 mmol/L [facility] GLUCOSE 207(H) 65 - 99 mg/dL [facility] CALCIUM 7.8(L) 8.6 - 10.2 mg/dL [facility] CO2 23 22 - 30 mmol/L [facility] GFR, >60 >=60 mL/min/1. 7 sq meter [facility] POTASSIUM 4.0 3.5 - 4.9 mmol/L [facility] CREATININE 1.09 0.67 - 1.17 mg/dL [facility] BUN 16 6 - 20 mg/dL [facility] GFR >60 >=60 mL/min/1. 7 sq meter [facility] Comment: Modification of Diet in Renal Disease (MDRD) study formula. Estimated GFR rate interpretative information for both Americans and non- Americans is available on the [facility] Intranet at: [email or web address] Select: Lab Policies and Procedures Select: Reference Ranges - GFR Blood specimen (specimen) 06/22/2008 5:22 AM CDT 06/22/2008 6:19 AM CDT us Kalin Jones MD CHEMISTRY ORDERABLES Edited INTERFACE SYSTEM Refer to clinic/hospital department [facility] CLIA# [id number] [address] [place] [address] * PATHOLOGY (06/21/2008 5:00 PM CDT) FINAL REPORT [address] [address] Patient: BONG CASTILLO : 1950 Procedure Date: 06/21/2008 Accession Date: 06/22/2008 Case No: [id number] Ordering Dr: KALIN JONES Case types AW, BW, FW, NW and SH are performed by [place], [place] SURGICAL PATHOLOGY & NON-GYNECOLOGIC CYTOPATHOLOGY REPORT DIAGNOSIS RECTUM, LAPAROSCOPIC ANTERIOR COLON RESECTION: - POLYPECTOMY SITE CHANGES WITH NO RESIDUAL CARCINOMA. - HYPERPLASTIC POLYPS, MULTIPLE. LARGE INTESTINE, SIGMOID, SEPARATE SEGMENT, EXCISION: - NO PATHOLOGIC DIAGNOSIS. LYMPH NODES, MESORECTAL AND PERICOLIC EXCISION: - NEGATIVE FOR METASTASIS (29 LYMPH NODES). Specimen Description: (1) Sigmoid colon and rectum, suture cortez polypectomy site; (2) mesorectum. Operative Procedure: Laparoscopic anterior colon resection. Patient Information/Histor y/Diagnosis: Malignant rectal polyp. Gross: Received are two containers labeled Jonathan Mickey.. Received in the first container, additionally labeled sigmoid colon and rectum, suture cortez polypectomy site is a 18.0-cm long x 0.6-cm in circumference distal portion of colon, contiguous with a 5.0-cm long x 7.5-cm in circumference portion of rectum. The segment was received open. There is 23.0 x 6.0 x 5.0-cm of attached adipose tissue. The peritoneal reflection is 16.0 cm from the distal margin. The adipose tissue surrounding the rectum is disrupted and the underlying muscle is exposed. A suture is present on the rectal mucosa, marking a polypectomy site. There is a 1.8 x 1.0 x 0.1-cm slightly raised, slightly indurated area of pink-santana mucosa adjacent to the suture, which may be a sessile polyp. The mucosa surrounding the possible polyp is discolored fox, and the submucosa appears to have previously been marked with tattoo ink. The possible polyp is 3.8 cm from the distal margin and 17.4 cm from the proximal margin. Upon sectioning, the possible polyp does not appear to involve the muscularis propria and is 1.2 cm from the blue-inked radial margin. The remainder of the mucosa is pink-santana and demonstrates a normal folding pattern. Four additional pink-santana sessile polyps are identified, ranging from 0.2 cm to 0.3 cm. These polyps come to within 7.0 cm from the proximal margin, and 9.4 cm from the distal margin. The average wall thickness is 0.2 cm. The attached adipose tissue is fixed in Carnoy's and dissected for lymph node candidates. Auto Crane Driver sections are submitted as follows: A1-proximal bowel margin, tangential; J6-V5-rfavgb bowel margin, tangential; O8-W2-sljxiskm polyp in area of suture, entirely submitted; A7-additional sessile polyp; A8-tattooed mucosa adjacent to suture; U9-J31-tkafb node candidate. Also received in a container is a 10.5-cm long x 5.0-cm in circumference segment of bowel. The segment is received closed and has 10.0 x 5.5 x 4.0 cm of attached adipose tissue. The serosa is pink-santana and glistening. The mucosa is pink-santana and demonstrates a normal folding pattern. No lesions are identified. The average wall thickness is 0.2 cm. The attached adipose tissue is fixed in Carnoy's and dissected for lymph node candidates. [employer] sections are submitted as follows: [id number] margins, tangential; K85-teplgk and bowel wall; Q42-V60-uugtp node candidates. Received in the second container labeled mesorectum is a 6.5 x 3.5 x 1.0- cm portion of adipose tissue. It is dissected for lymph node candidates. Four lymph node candidates are identified, each 0.2 cm. All are submitted in block A19 [facility] 06.22.2008 05:10 pm Microscopic: The slides are labeled [id number], Bong Castillo. Sections of the rectosigmoid colectomy show no evidence of residual adenocarcinoma. The sections of polypectomy site show fibrosis within the submucosa and superficial portion of the muscularis propria, focally associated with tattoo ink. The overlying mucosa has foci of slight crypt architectural distortion, but there is no evidence of residual adenoma or carcinoma. The additional small polyps noted grossly represent minute hyperplastic polyps as well as small lymphoid aggregates. The surgical margins are negative for malignancy. All 22 lymph nodes identified in pericolorectal fat are negative for metastasis. Many contain tattoo ink. Sections of the separate segment of bowel showed no significant pathologic alterations. Six lymph nodes isolated from pericolic fat are negative for metastasis. The separately submitted mesorectum specimen contains a single small lymph node which is negative for metastasis. The following staging parameters are based on both the prior biopsy and the current resection. Summary of Significant Characteristics for Colon/Rectum/Trans anal Excision: Specimen: Sigmoid colon and rectum. Procedure: Laparoscopic anterior colon resection. Tumor Site: Rectum. Tumor Size: Cannot be determined. Macroscopic Tumor Perforation: Absent. Histologic Type: Adenocarcinoma. Histologic Grade: Low-grade. Microscopic Tumor Extension: Invades submucosa. Status of Proximal, Distal, Circumferential (Radial) or Mesenteric, and Lateral Margin(s): All uninvolved, polypectomy site is 3.8 cm from the distal margin and 1.2 cm from the radial margin. Treatment Effect: No prior treatment. Lymphatic/Small Vessel Invasion: Present. Venous/Large Vessel Invasion: Absent. Pathologic Staging (pTNM): pT1 N0 MX. Lymph Nodes: Number Examined 29; Number Involved 0. FLAKO/VIOLET 06.25.2008 12:12 pm Staging Form: Yes ELECTRONIC SIGNATURE FOR ALFREDO FONG MD- 06/25/08 03:55 pm INTERFACE SYSTEM 06/21/2008 5:00 PM CDT us Kalin Jones MD PATHOLOGY/CYTOLOGY ORDERABL ES Final Result INTERFACE SYSTEM Refer to clinic/hospital department * (ABNORMAL) COMPREHENSIVE METABOLIC PANEL (06/13/2008 2:25 PM CDT) CHLORIDE 96 96 - 108 mmol/L [facility] TOTAL PROTEIN 7.9 6.3 - 8.6 g/dL [facility] SODIUM 137 135 - 145 mmol/L [facility] GLUCOSE 120(H) 65 - 99 mg/dL [facility] AST 26 12 - 38 U/L [facility] CO2 25 22 - 30 mmol/L [facility] BILIRUBIN TOTAL 0.5 0.2 - 1.0 mg/dL [facility] CALCIUM 9.7 8.6 - 10.2 mg/dL [facility] POTASSIUM 3.4(L) 3.5 - 4.9 mmol/L [facility] ALBUMIN 5.0(H) 3.4 - 4.8 g/dL [facility] CREATININE 1.04 0.67 - 1.17 mg/dL [facility] ALT 34 0 - 41 U/L [facility] BUN 15 6 - 20 mg/dL [facility] ALKALINE PHOSPHATASE 98 40 - 129 U/L [facility] GFR, >60 >=60 mL/min/1. 7 sq meter [facility] GFR >60 >=60 mL/min/1. 7 sq meter [facility] Comment: Modification of Diet in Renal Disease (MDRD) study formula. Estimated GFR rate interpretative information for both Americans and non- Americans is available on the [facility] Intranet at: [email or web address] Select: Lab Policies and Procedures Select: Reference Ranges - GFR Blood specimen (specimen) 06/13/2008 2:25 PM CDT 06/13/2008 3:18 PM CDT Kalin Jones MD CHEMISTRY ORDERABLES Edited Performing Organization Address [facility] Phone Number INTERFACE SYSTEM Refer to clinic/hospital department [facility] CLIA# [id number] [address] [place] [address] * CEA (06/13/2008 2:25 PM CDT) Pathologist [facility] CEA 1.8 <=3.8 ng/mL [facility] Comment: Reference Range: Non-smoker: </= 3.8 ng/mL Smoker: < 5.5 ng/mL Values from different assay methods cannot be used interchangeably because the concentration of CEA in any given specimen can vary due to differences in assay methods and reagent specificity. Serum CEA levels, regardless of value, should not be interpreted as absolute evidence of the presence or absence of malignant disease. Performed on [employer] E170 System. Blood specimen (specimen) 06/13/2008 2:25 PM CDT 06/13/2008 3:18 PM CDT Kalin Jones MD CHEMISTRY ORDERABLES Edited Performing Organization Address [facility] Phone Number INTERFACE SYSTEM Refer to clinic/hospital department [facility] CLIA# [id number] [address] [place] [address] * (ABNORMAL) CBC WITH DIFFERENTIAL (06/13/2008 2:25 PM CDT) Pathologist [facility] RBC 5.25 4.50 - 5.40 M/uL [facility] MCHC 34.4 31.5 - 35.5 % [facility] MCV 93.1 82.0 - 99.0 fL [facility] PLATELETS 260 140 - 350 K/uL [facility] HEMOGLOBIN 16.8(H) 13.6 - 16.5 g/dL [facility] RDW 13.1 11.5 - 14.5 % [facility] WBC 7.9 4.0 - 9.8 K/uL [facility] MCH 32.0 27.2 - 32.6 pg [facility] MPV 10.2 9.3 - 12.4 fL [facility] HEMATOCRIT 48.9(H) 40.0 - 48.0 % [facility] RDW-STDEV 44.4 37.1 - 48.7 fL [facility] MONOCYTES 10 3 - 13 % [facility] MONOCYTE ABSOLUTE 0.79 0.10 - 1.30 K/uL [facility] NEUTROPHILS 54 45 - 70 % [facility] NEUTROPHIL ABSOLUTE 4.22 1.90 - 7.00 K/uL [facility] EOSINOPHILS 1 0 - 7 % [facility] EOSINOPHIL ABSOLUTE 0.09 0.00 - 0.70 K/uL [facility] LYMPHOCYTES 35 16 - 45 % [facility] LYMPHOCYTE ABSOLUTE 2.72 0.70 - 4.50 K/uL [facility] BASOPHILS 1 0 - 2 % [facility] BASOPHILS ABSOLUTE 0.05 0.00 - 0.20 K/uL [facility] Blood specimen (specimen) 06/13/2008 2:25 PM CDT 06/13/2008 3:18 PM CDT us Kalin Jones MD HEMATOLOGY ORDERABLES Edite d INTERFACE SYSTEM Refer to clinic/hospital department [facility] CLIA# [id number] [address] [facility] [place] [place] [address] * TYPE AND CROSSMATCH (06/13/2008 2:19 PM CDT) SPECIMEN LIFE 3 days from OR date [facility] HISTORY CHECK No Historical ABO/Rh [facility] ABO/RH TYPE O Positive [facility] ANTIBODY SCREEN Negative [facility] Blood specimen (specimen) 06/13/2008 2:19 PM CDT us Kalin Jones MD BLOOD BANK ORDERABLES Edite d INTERFACE SYSTEM Refer to clinic/hospital department [facility] CLIA# [id number] [address] [place] [address] documented in this encounter Visit Diagnoses Not on filedocumented in this encounter
--- OUTSIDE RECORDS SUMMARY | 2025-01-23 06:51 | XMS_ITS | Encounter Summary ---
Author Organization [employer] Address 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 Gender Identity Not on file Sexual Orientation Not on file documented as of this encounter Plan of Treatment Not on file documented as of this encounter Procedures Procedure Name Priority Date/Time Associated Diagnosis Comments PATHOLOGY Routine 06/15/2008 10:24 AM CDT documented in this encounter Results * PATHOLOGY (06/15/2008 10:24 AM CDT) OUTSIDE CONSULTATION REPORT [address] [address] Patient: BONG CASTILLO : 1950 Procedure Date: 06/15/2008 Accession Date: 06/15/2008 Case No: [id number] Ordering Dr: KALIN JONES Case types AW, BW, FW, NW and SH are [place] [facility] [place] OUTSIDE CONSULTATION REPORT DIAGNOSIS LARGE INTESTINE, RECTUM, 15 CM, BIOPSY: - ADENOCARCINOMA, LOW-GRADE, 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 LARGE INTESTINE, CECUM, BIOPSY: - TUBULAR ADENOMA. LARGE INTESTINE, HEPATIC FLEXURE, BIOPSY: - TUBULAR ADENOMA. LARGE INTESTINE, PROXIMAL SIGMOID, 20 CM, BIOPSY: - TUBULAR ADENOMA. LARGE INTESTINE, SIGMOID, BIOPSY: - TUBULAR ADENOMA. ANAL CANAL, BIOPSY: - TUBULOVILLOUS ADENOMA. Submitted By: Dr. Kalin Jones, [facility] [place] [address], [address], [place] [address]; cc: [employer], Attention: Reference [employer], [address] [place] [address], [address], [place] [address] Date Received: 06/15/08 Date Dictated: 06/15/08 Billing Code: BP Patient Information/Histo ry/Diagnosis: None provided. Material Received: We receive from [employer] 33 slides labeled [id number]. The slides are returned. Microscopic: The accompanying report indicates the slides represent sections of endoscopic biopsies obtained 05/28/08. My review confirms the observations of previous reviewers. 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 In the various levels of section, tumor extends to within 1.3 mm from the cauterized surgical margin, and unequivocal lymphatic vascular invasion is present. The remaining biopsies demonstrate findings that are tabulated in the above diagnoses. [facility] 06.16.08 ELECTRONIC SIGNATURE FOR ERIKA DUVALL M.D. - 06/16/08 07:35 am INTERFACE SYSTEM 06/15/2008 10:2 4 AM CDT us Kalin Jones MD PATHOLOGY/CYTOLOGY ORDERABL ES Final Result INTERFACE SYSTEM Refer to clinic/hospital department documented in this encounter Visit Diagnoses Not on filedocumented in this encounter
--- OUTSIDE RECORDS SUMMARY | 2025-01-23 06:51 | XMS_ITS | Clinical Summary ---
Author Organization [facility] Address [address] [place] [address] Care Team Providers Care Tax Intern Name Role Phone Malachi Donohue MD Primary Care Provider [phone] Source Comments [facility],non-owned Affiliates and Associated Physician Practices is amultiple site organization consisting of ambulatory clinics and hospital sitesin [place], [place], [place] and [place]. This disclosure is being madepursuant to the Care Everywhere program and may not contain all information available regarding this patient. Last updated 17.[facility] Allergies No known active allergies Social History Tobacco Use Types Packs/Day Years Used Date Smoking Tobacco: Never Assessed Sex and Gender Information Value Date Recorded Sex Assigned at Not on file Legal Sex Male 9:19 AM CDT Gender Identity Not on file Sexual Orientation Not on file Plan of Treatment Health Maintenance Due Date Last Done Comments HEPATITIS C SCREENING 01/31/1966 DTAP/TDAP/TD VACCINES (1 - Tdap) 02/04/1967 PNEUMOCOCCAL VACCINE 50+ (1 of 1 - PCV) 02/04/1998 ZOSTER VACCINE (1 of 2) 02/04/1998 Respiratory Syncytial Virus (RSV) Vaccine Pt: or over 60 yrs (1 - 1-dose 75+ series) 02/04/2023 DEPRESSION SCREENING 02/09/2024 COVID-19 VACCINE ( - 2024-2 6 season) 2024 INFLUENZA VACCINE (#1) 2024 HEPATITIS B VACCINE Aged Out No longe r eligible based on patient's age to complete this topic HIB VACCINE Aged Out No longer eligi ble based on patient's age to complete this topic HPV VACCINE Aged Out No longer eligi ble based on patient's age to complete this topic MENINGOCOCCAL (Group B) VACC INE SHARED DECISION-MAKING Aged Out No longer eligibl e based on patient's age to complete this topic MENINGOCOCCAL GROUPS A/C/Y/W VACCINE Aged Out No longer eligible b ased on patient's age to complete this topic Care Teams Tax Intern Relationship Specialty Start Date End Date Malachi Donohue MD [address] [phone] PCP - General Family Medicine 08/25/18
--- OUTSIDE RECORDS SUMMARY | 2025-01-23 06:51 | XMS_ITS | Encounter Summary ---
Author Organization [employer] Address [address] [place] [address] Care Team Providers Care Director Of Audiology Name Role Phone Unavailable Primary Care Provider Unavailabl e Encounter Details Date Type Department Care Team (Latest Contact Info) Description 07/03/2008 Outpatient Historical [facility], [address] Kalin Jones MD NO ADDRESS ON FILE Amput Above Knee, Unilat Social History Tobacco Use Types Packs/Day Years Used Date Smoking Tobacco: Never Assessed Sex and Gender Information Value Date Recorded Sex Assigned at Not on file Legal Sex Male 5:44 AM [employer] Gender Identity Not on file Sexual Orientation Not on file documented as of this encounter Plan of Treatment Not on file documented as of this encounter Procedures Procedure Name Priority Date/Time Associated Diagnosis Comments ANAEROBIC/AEROBIC CULTURE W GRAM STAIN Stat 07/03/2008 1:44 PM CDT documented in this encounter Results * ANAEROBIC/AEROBIC CULTURE W GRAM STAIN (07/03/2008 1:44 PM CDT) GRAM STAIN No organisms seen Rare WBC's seen [facility] PRELIMINARY REPORT Light growth presumptive Leti albicans [facility] FINAL REPORT Light growth presumptive Leti albicans -- Faxed report(s): to [phone] on 07/08/08 6:45:36 [facility] Specimen from abscess (specimen) ABDOMEN AND PELVIS / Unknown 07/03/2008 1:44 PM CDT 07/03/2008 3:32 PM CDT Narrative INTERFACE SYSTEM - 07/08/2008 6:45 AM CDT FAX [phone] Kalin Jones MD MICROBIOLOGY - GENERAL [facility]ESS[facility]OGERS Final Result INTERFACE SYSTEM Refer to clinic/hospital department [facility] CLIA# [id number] [address] [place] [address] documented in this encounter Visit Diagnoses Diagnosis Traumatic amputation of leg(s) (complete) (partial), unilateral, at or above knee, without mention of complication documented in this encounter
[2025-01-23 07:23] LABS: Hematocrit 41.9 % (42.0-52.0); Hemoglobin 14.2 g/dL (14.0-18.0); Immature Granulocyte Percent A 0.4 % (0-0.5); Lymphocytes Absolute Auto 2.39 K/mm3 (0.9-3.2); Mean Corpuscular HGB Conc 33.9 g/dl (32-36); Mean Corpuscular Hemoglobin 31.1 pg (26-34); Mean Corpuscular Volume 91.7 fl (80-100); Nucleated Red Blood Cells Absolute Auto 0.000 K/mm3 (0.0-0.012); Nucleated Red Blood Cells Perc 0.0 % (0.0-0.2); Platelet Count Result 301 k/mm3 (150-375); Red Blood Count 4.57 M/mm3 (4.6-6.20); White Blood Count 7.3 K/mm3 (4.5-10.0)
[2025-01-23 07:48] LABS: Alanine Aminotransferase 20 U/L (6-50); Albumin Level 4.0 g/dL (3.5-5.1); Alkaline Phosphatase 77 U/L (38-126); Anion Gap 4 mmol/L (4-12); Aspartate Amino Transferase 27 U/L (17-59); Bilirubin,Total 0.6 mg/dL (0.2-1.3); Blood Urea Nitrogen 29 mg/dL (9-20); Calcium 9.1 mg/dL (8.4-10.2); Carbon Dioxide 26 mmol/L (22-30); Chloride 104 mmol/L (98-107); Cholesterol 186 mg/dL (0-200); Estimated Glomerular Filt Rate 59; Glucose 82 mg/dL (65-110); HDL Direct 53 mg/dL; Potassium 4.8 mmol/L (3.4-5.0); Sodium 134 mmol/L (137-145); Total Protein 7.0 g/dL (6.3-8.2); Triglycerides 88 mg/dL (<150)
[2025-01-23 08:23] LABS: Prostate Specific Antigen 1.6 ng/mL (< OR = 4.0); Thyroid Stimulating Hormone 0.932 uIU/mL (0.465-4.680)
== END 2025-01-23 06:47 | disposition home or self-care (01) ==
PROVIDERS: PCP Family Medicine; Visit Provider Family Medicine
DX: E87.1 Hypo-osmolality and hyponatremia (principal); I10 Essential (primary) hypertension; J44.9 Chronic obstructive pulmonary disease, unspecified; R53.83 Other fatigue; R79.89 Other specified abnormal findings of blood chemistry; R35.1 Nocturia; Z72.89 Other problems related to lifestyle
CPT/HCPCS: 36415; 80053; 80061; 84153; 84443; 85025